=== PATIENT | male | born 1965 | race Caucasian/White ===

== ENCOUNTER 2016-02-18 18:25 | Emergency (ER) | payer OTHER ==
[~2016-02-18] VITALS: Ht 181.6 cm; Wt 76.2 kg
[~2016-02-18 18:25] MED LIST: BACL10TA PO; ULTR50TA PO
[2016-02-18 18:36] VITALS: BP 117/85; PULSE 72; RESP 16; TEMP 98; O2SAT 96
[2016-02-18] MEDS ORDERED: ACETAMINOPHEN/HYDROcodone 325 MG/5 MG TAB PO ONE (19:45)
--- NOTE | 2016-02-18 19:45 | PD ---
HPI Chief Complaint: Musculoskeletal Complaint Time Seen by Provider: 19:21 Travel History International Travel<30 days: No Contact w/Intl Traveler<30days: No Traveled to known affect area: No History of Present Illness HPI Patient is a 50-year-old male presents to emergency department with left hand pinky pain. Patient states that he slipped and fell and jammed his finger to the point where was dislocated laterally. He states that he replaced the bone and then came in for further evaluation. Complains of pain in the distal metacarpal/proximal phalanx of the left pinky finger. Denies injury to any other body part. Denies sick be denies chest pain denies shortness of breath. Patient secondary complaint of respiratory voice and cough for the past 2 months. His girlfriend who is here with him states that the cough is gradually gotten worse. Patient is reluctant to admit that he is HIV positive. Last CD4 count per documentation is in the 80-100 range. He has not had labs recently at [facility]. He does state that he is taking his antiretrovirals. Denies fever denies sputum production. PFSH Past Medical History Autoimmune Disease: Yes (HIV) Social History Alcohol Use: No Tobacco Use: Yes (FEW CIGS A DAY) Substance Use: No Allergies-Medications (Allergen,Severity, Reaction): Coded Allergies: No Known Allergies (Unverified , 02/18/16) Reported Meds & Prescriptions Reported Meds & Active Scripts Active Azithromycin 250 Mg Tab 250 Mg PO DIRECTED Take 2 tabs (500 mg) on day 1 then 1 tab daily x 4 days. [place] (Hydrocodone-Acetaminophen) 5-325 mg Tab 1 Tab PO Q6H PRN Reported Azithromycin 500 Mg Tab 500 Mg PO WEEKLY Fluconazole 200 Mg Tab 200 Mg PO DAILY Genvoya (Ctkglbluyxqi-Tgymsckzkz-Ywfbcfnnvhha-Tenofvir) [phone] Mg Tab 1 Tab PO DAILY Lioresal (Baclofen) 10 Mg Tab 10 Mg PO TID Ultram (Tramadol HCl) 50 Mg Tab 50 Mg PO Q4H PRN Review of Systems Except as stated in HPI: all other systems reviewed are Neg Physical Exam Narrative GENERAL: Well-nourished, well-developed patient. SKIN: Warm and dry. HEAD: Normocephalic. EYES: No scleral icterus. No injection or drainage. ENT: Oropharynx clear TMs clear bilaterally. No cervical lymphadenopathy. NECK: Supple, trachea midline. No JVD or lymphadenopathy. CARDIOVASCULAR: Regular rate and rhythm without murmurs, gallops, or rubs. RESPIRATORY: Breath sounds equal bilaterally. No accessory muscle use. GASTROINTESTINAL: Abdomen soft, non-tender, nondistended. MUSCULOSKELETAL: No cyanosis, or edema. Pulses motor and sensory are intact distal in all 4 extremities. There is some swelling about the proximal phalanx on the left pinky finger. Range of motion is limited secondary to pain but flexor and states tensions. To be intact against resistance. There is no tenderness of the wrist distal radius distal ulna or elbow on the left. There is no breakage of the skin over the injury site. Right hand/wrist/forearm/elbow/shoulder are atraumatic. BACK: Nontender without obvious deformity. Data Data Last Documented VS Vital Signs Date Time Temp Pulse Resp B/P Pulse Ox O2 Delivery O2 Flow Rate FiO2 02/18/16 18:36 98.0 72 16 117/85 96 Orders Hand, Complete (Hhr0umc) (02/18/16 ) Acetamin-Hydrocod 325-5 Mg ([place] 5-325 (02/18/16 19:45) Splint Or Brace Apply/Monitor (02/18/16 20:03) Chest, Pa & Lat (02/18/16 ) Finger Splint (02/18/16 ) MDM Medical Decision Making Medical Screen Exam Complete: Yes Emergency Medical Condition: Yes Differential Diagnosis Pinky dislocation, pinky fracture, hand fracture, wrist fractures unlikely. Narrative Course Patient roomed in the emergency department, by history it appears he has had a dislocation of his left pinky finger. Needs exclusion of command fracture. X- rays are ordered. Will be given pain medicine. Patient was splinted after diagnosing possible phalanx fracture. Chest x-ray negative. Discussed will cover for atypical pneumonia with azithromycin though there is no obvious pneumonia on his chest x-ray. After which she will resume his normal azithromycin. Discussed need follow-up with his primary care physician and return to ED criteria. Last 24 hours Impressions Hand X-Ray 02/18/16 0000 Signed Impressions: Service Date/Time: Thursday, February 18, 2016 19:51 - CONCLUSION: Minimally displaced oblique fracture of the fifth finger proximal phalanx Rufino Scanlon MD Chest X-Ray 02/18/16 0000 Signed Impressions: Service Date/Time: Thursday, February 18, 2016 20:34 - CONCLUSION: No acute disease. Rufino Scanlon MD Diagnosis Primary Impression: Finger fracture, left Qualified Code: S62.609A - Finger fracture, left, closed, initial encounter Additional Impression: Bronchitis Referrals: Lex Armendariz MD Additional Instructions: Take azithromycin as prescribed by me over the next 5 days then return to normal azithromycin dosing. Follow-up through primary care physician. Your chest x-ray today is normal. Med/Other Pt SpecificInfo: Prescription(s) given Scripts Azithromycin 250 Mg [id number] Mg PO DIRECTED #6 TAB Ref 0 Take 2 tabs (500 mg) on day 1 then 1 tab daily x 4 days. Prov:Navneet Wilcox MD 02/18/16 Hydrocodone-Acetaminophen ([place])5-325 mg Tab1 Tab PO Q6H PRN (PAIN) #12 TAB Ref 0 Prov:Navneet Wilcox MD 02/18/16 Disposition: 01 DISCHARGE HOME Condition: Stable Navneet Wilcox MD Feb 18, 2016 19:45
[2016-02-18] MEDS ORDERED: FLUC200T2 PO (19:49)
[2016-02-18] MEDS ORDERED: ELVI1TAB3 PO (19:49)
[2016-02-18] MEDS ORDERED: AZIT500T2 PO (19:49)
--- NOTE | 2016-02-18 20:14 | RADHPO ---
EXAM DATE/TIME: 02/18/2016 19:51 [facility] COMPARISON: No previous studies available for comparison. INDICATIONS : Left hand, fifth digit pain and swelling from fall. MEDICAL HISTORY : None. SURGICAL HISTORY : None. ENCOUNTER: Initial ACUITY: 2 days PAIN SCORE: 10/10 LOCATION: Left hand. FINDINGS: There is an oblique minimally displaced fracture involving the fifth finger proximal phalanx, mainly involving the diaphyseal portion of the bone. The hand appears otherwise intact. CONCLUSION: Minimally displaced oblique fracture of the fifth finger proximal phalanx Rufino Scanlon MD on February 18, 2016 at 20:11 Board Certified Radiologist. This report was verified electronically.
[2016-02-18] MEDS ORDERED: NORC5TAB PO (20:23)
[2016-02-18] MEDS ORDERED: AZIT250T3 PO (21:09)
--- NOTE | 2016-02-18 21:16 | RADHPO ---
EXAM DATE/TIME: 02/18/2016 20:34 [facility] COMPARISON: CHEST SINGLE AP, June 06, 2013, 21:15. INDICATIONS : Cough. MEDICAL HISTORY : Smoker. SURGICAL HISTORY : None. ENCOUNTER: Initial ACUITY: 1 day PAIN SCORE: 0/10 LOCATION: Bilateral chest FINDINGS: PA and lateral views of the chest demonstrate the lungs to be symmetrically aerated without evidence of mass, infiltrate or effusion. The cardiomediastinal contours are unremarkable. Osseous structure s are intact. CONCLUSION: No acute disease. Rufino Scanlon MD on February 18, 2016 at 21:14 Board Certified Radiologist. This report was verified electronically.
== END 2016-02-18 21:24 | disposition home or self-care (01) ==
LOC: PHEFT 18:25
DX: S62.617A Displaced fracture of proximal phalanx of left little finger, initial encounter for closed fracture (principal); J40 Bronchitis, not specified as acute or chronic; Z21 Asymptomatic human immunodeficiency virus [HIV] infection status; Z79.899 Other long term (current) drug therapy; Z72.0 Tobacco use; W01.0XXA Fall on same level from slipping, tripping and stumbling without subsequent striking against object, initial encounter
CPT/HCPCS: 71020; 73130; 99283